=== PATIENT | female | born 1965 | race Caucasian/White ===

== ENCOUNTER → 2017-09-12 | Outpatient (CLI) | payer OTHER ==
[~2017-09-12] MED LIST: ASPI-COR81 M1 PO; BENTYL20 MG PO; LISINOPRIL10 MG PO; MORPHINE; PEPCID20 MG PO; PERCOCET 325 MG1 TAB PO
== END | disposition home or self-care (01) ==
LOC: RAD 12:28
DX: M25.511 Pain in right shoulder (principal); M54.2 Cervicalgia; M54.5 Low back pain; M79.7 Fibromyalgia; R20.0 Anesthesia of skin; M54.6 Pain in thoracic spine

== ENCOUNTER → 2017-10-20 | Outpatient (CLI) | payer OTHER | END | disposition home or self-care (01) | LOC: MRI 13:00 | DX: M75.101 Unspecified rotator cuff tear or rupture of right shoulder, not specified as traumatic (principal); M19.011 Primary osteoarthritis, right shoulder; M54.2 Cervicalgia ==

== ENCOUNTER 2018-02-27 17:48 | Emergency (ER) | payer OTHER ==
[~2018-02-27] VITALS: Wt 61.2 kg
[2018-02-27 18:41] LABS: BASO # 0.1 10*3/uL (0.0-0.1); BASO % 1.1 % (0.0-1.0); EOS # 0.2 10*3/uL (0.0-0.4); EOS % 3.3 % (1.0-4.0); HEMATOCRIT 38.5 % (37.0-47.0); LYMPH # 2.6 10*3/uL (1.3-4.4); MEAN CELL VOLUME 84.2 fl (81.0-99.0); MEAN CORPUSCULAR HGB 28.4 pg (27.0-31.0); MEAN CORPUSCULAR HGB CONC 33.8 g/dl (33.0-37.0); MEAN PLATELET VOLUME 9.7 fl (9.6-12.3); MONO # 0.7 10*3/uL (0.1-1.0); MONO % 10.2 % (3.0-9.0); NEUT # 2.9 10*3/uL (2.3-7.9); NEUT % 44.4 % (47.0-73.0); PLATELET COUNT AUTOMATED 236 10*3/uL (130-400); RED BLOOD COUNT 4.57 10*6/uL (4.10-5.10); RED CELL DISTRI WIDTH 13.1 % (0-14.5); WHITE BLOOD COUNT 6.4 10*3/uL (4.8-10.8)
[2018-02-27 18:58] LABS: ALBUMIN 3.9 gm/dl (3.1-4.5); ALKALINE PHOSPHATASE 61 U/L (45-117); BUN 26 mg/dl (7-24); CHLORIDE 101 mmol/L (98-107); CREATININE 1.73 mg/dL (0.55-1.02); POTASSIUM 3.1 mmol/L (3.5-5.1); SGOT/AST 20 IU/L (3-35); SGPT/ALT 22 U/L (12-78); SODIUM 135 mmol/L (136-145); TOTAL PROTEIN 7.4 gm/dL (6.4-8.2)
[2018-02-27 19:03] LABS: TROPONIN I < 0.015 ng/ml (<0.045)
[2018-02-27 19:04] LABS: BILIRUBIN NEGATIVE (NEGATIVE); BLOOD TRACE-LYSED (NEGATIVE); CLARITY SL CLOUDY (CLEAR); COLOR YELLOW (YELLOW); GLUCOSE NEGATIVE (NEGATIVE); KETONE NEGATIVE (NEGATIVE); LEUKO ESTERASE NEGATIVE (NEGATIVE); NITRITE NEGATIVE (NEGATIVE); SPECIFIC GRAVITY 1.025 (1.005-1.030); UROBILINOGEN 0.2 E.U./dl (0.2-1.0)
[2018-02-27 19:12] LABS: BACTERIA 2+; MUCOUS TRACE; WBC 0-2 wbc/hpf (0-5)
[2018-02-27] MEDS ORDERED: K-TAB20 MEQ PO (20:27)
== END 2018-02-27 20:30 | disposition home or self-care (01) ==
LOC: ED 17:48
PROVIDERS: Emergency Medicine
DX: R00.2 Palpitations (principal); I10 Essential (primary) hypertension; E87.6 Hypokalemia; R79.89 Other specified abnormal findings of blood chemistry; F17.200 Nicotine dependence, unspecified, uncomplicated; Z79.82 Long term (current) use of aspirin; Z79.899 Other long term (current) drug therapy; Z88.0 Allergy status to penicillin; Z88.1 Allergy status to other antibiotic agents

== ENCOUNTER → 2018-03-04 | Outpatient (CLI) | payer OTHER ==
[~2018-03-04] MED LIST changes: +K-TAB20 MEQ PO
--- NOTE | ~2018-03-04 | HM ---
[place], [place] HOLTER MONITOR REPORT NAME: [facility]U [facility] [id number] UNIT #: [id number] ROOM: DOCTOR: ANDI GORDON MD BIRTHDATE: [birth year] DOS: INDICATIONS: Palpitations. FINDINGS: The patient was recorded for 24 hours utilizing a Holter device. The basic rhythm was normal sinus with an average heart rate of 75, heart rate varied from 48-138 beats per minute in sinus. No ventricular arrhythmias were recorded. A total of 24 premature atrial contractions were noted including two atrial couplets. No prolonged pauses were seen. There was no SVT. The patient reported that she was out of breath with her heart pounding on several occasions. On one of these occasions, she had a premature atrial contraction. The rest of them she was in sinus rhythm with rates between 70 and 90. IMPRESSION: Normal 24-hour Holter monitor. ANDI GORDON MD CM:HOLTER:HOLTER MONITOR REPORT [id number] ANDI GORDON MD
== END | disposition home or self-care (01) ==
LOC: CARD 09:30
DX: E87.6 Hypokalemia (principal); R00.2 Palpitations

== ENCOUNTER → 2018-04-10 | Outpatient (CLI) | payer OTHER ==
[~2018-04-10] MED LIST changes: +ADDERALL 30 MG30 MG PO; +ATENOLOL25 MG PO; -LISINOPRIL10 MG PO; +LISINOPRIL20 MG PO; +SIMVASTATIN10 MG PO
--- NOTE | ~2018-04-10 | ST ---
[place], [place] EXERCISE STRESS TEST REPORT NAME: GIGI LAU [facility] #: [id number] UNIT #: [id number] ROOM: DOCTOR: ANDI GORDON MD BIRTHDATE: [birth year] DOS: 04/10/2018 EXERCISE MYOCARDIAL PERFUSION STRESS TEST INDICATIONS: Dyspnea, palpitations, severe fatigue. PROCEDURE: The patient exercised by a full Fransico protocol for 8 minutes and stopped for leg fatigue. She achieved a maximum heart rate of 145, which represented 87% of her maximum predicted heart rate at a workload of 10 mets. She did not develop chest pain and did not have significant diagnostic ST or T-wave changes with exercise. One minute prior to completion of exercise protocol, she was given radionuclide intravenously. IMPRESSION: 1. Good exercise capacity without chest pain or diagnostic electrocardiographic changes. 2. Olmos treadmill score 8 consistent with a low risk for future cardiac events. 3. Radionuclide injected. Please see the separate imaging report for further details of the patient's stress test results. ANDI GORDON MD CM:STRESS:EXERCISE STRESS TEST REPORT [id number] ANDI GORDON MD
== END | disposition home or self-care (01) ==
LOC: CARD 02:57
DX: R06.02 Shortness of breath (principal); R01.1 Cardiac murmur, unspecified

== ENCOUNTER → 2018-04-26 | Outpatient (CLI) | payer OTHER | END | disposition home or self-care (01) | LOC: LAB 16:52 | DX: Z12.11 Encounter for screening for malignant neoplasm of colon (principal); Z00.8 Encounter for other general examination; F11.20 Opioid dependence, uncomplicated; E55.9 Vitamin D deficiency, unspecified; E78.9 Disorder of lipoprotein metabolism, unspecified; R74.8 Abnormal levels of other serum enzymes; I10 Essential (primary) hypertension ==

== ENCOUNTER → 2018-04-28 | Outpatient (CLI) | payer OTHER ==
[2018-04-28 13:29] LABS: URINE AMPHETAMINES > 1000 (1000ng/ml); URINE BARBITURATES < 200 (200ng/ml); URINE BENZODIAZEPINES > 200 (200ng/ml); URINE CANNABINOIDS (THC) < 50 (50ng/ml); URINE COCAINE < 300 (300ng/ml); URINE METHADONE < 300 (300ng/ml); URINE OPIATES > 300 (300ng/ml); URINE PHENCYCLIDINE < 25 (25ng/ml)
[2018-04-28 13:51] LABS: ALBUMIN 4.4 gm/dl (3.1-4.5); ALKALINE PHOSPHATASE 57 U/L (45-117); BUN 16 mg/dl (7-24); CHLORIDE 105 mmol/L (98-107); CHOLESTEROL 168 mg/dL (<200); HDL CHOLESTEROL 44 mg/dl (40-60); LDL CHOLESTEROL 87 mg/dL (9-159); POTASSIUM 3.5 mmol/L (3.5-5.1); SGOT/AST 18 IU/L (3-35); SGPT/ALT 25 U/L (12-78); SODIUM 140 mmol/L (136-145); TOTAL PROTEIN 8.4 gm/dL (6.4-8.2); TRIGLYCERIDES 185 mg/dl (<150); VLDL CHOLESTEROL 37 mg/dL (6-40)
== END | disposition home or self-care (01) ==
LOC: LAB 12:59
PROVIDERS: Family Medicine
DX: Z00.8 Encounter for other general examination (principal); E55.9 Vitamin D deficiency, unspecified; I10 Essential (primary) hypertension; E78.9 Disorder of lipoprotein metabolism, unspecified; R74.8 Abnormal levels of other serum enzymes; F11.20 Opioid dependence, uncomplicated

== ENCOUNTER → 2018-07-30 | Outpatient (CLI) | payer OTHER ==
[2018-07-30 13:15] LABS: URINE AMPHETAMINES < 1000 (1000ng/ml); URINE BARBITURATES < 200 (200ng/ml); URINE CANNABINOIDS (THC) < 50 (50ng/ml); URINE COCAINE < 300 (300ng/ml); URINE METHADONE < 300 (300ng/ml); URINE OPIATES > 300 (300ng/ml)
[2018-07-30 13:22] LABS: URINE BENZODIAZEPINES < 200 (200ng/ml)
[2018-07-30 13:23] LABS: URINE PHENCYCLIDINE < 25 (25ng/ml)
== END | disposition home or self-care (01) ==
LOC: LAB 11:43
PROVIDERS: Family Medicine
DX: Z51.81 Encounter for therapeutic drug level monitoring (principal)

== ENCOUNTER 2019-07-02 10:54 | Emergency (ER) | payer SELFPAY ==
[~2019-07-02] VITALS: Wt 56.2 kg
== END 2019-07-02 11:30 | disposition home or self-care (01) ==
LOC: ED 10:54
DX: S92.511A Displaced fracture of proximal phalanx of right lesser toe(s), initial encounter for closed fracture (principal); F17.200 Nicotine dependence, unspecified, uncomplicated; Z88.0 Allergy status to penicillin; Z88.1 Allergy status to other antibiotic agents; Z79.899 Other long term (current) drug therapy; Z79.82 Long term (current) use of aspirin; Z90.710 Acquired absence of both cervix and uterus; Z90.49 Acquired absence of other specified parts of digestive tract; W01.0XXA Fall on same level from slipping, tripping and stumbling without subsequent striking against object, initial encounter; Y93.89 Activity, other specified; Y92.89 Other specified places as the place of occurrence of the external cause; Y99.8 Other external cause status

== ENCOUNTER → 2020-07-24 | Outpatient (CLI) | payer SELFPAY ==
[2020-07-24 13:23] LABS: URINE AMPHETAMINES > 1000 (1000ng/ml); URINE BARBITURATES < 200 (200ng/ml); URINE BENZODIAZEPINES < 200 (200ng/ml); URINE CANNABINOIDS (THC) > 50 (50ng/ml); URINE COCAINE < 300 (300ng/ml); URINE METHADONE < 300 (300ng/ml); URINE OPIATES < 300 (300ng/ml)
[2020-07-24 13:28] LABS: URINE PHENCYCLIDINE < 25 (25ng/ml)
== END | disposition home or self-care (01) ==
LOC: LAB 12:54
DX: Z51.81 Encounter for therapeutic drug level monitoring (principal); Z79.899 Other long term (current) drug therapy

== ENCOUNTER 2021-05-28 11:47 | Emergency (ER) | payer SELFPAY ==
[~2021-05-28] VITALS: Ht 170.1 cm; Wt 55.3 kg
[2021-05-28 13:04] LABS: BASO % 0.6 % (0.0-1.0); EOS # 0.2 10*3/uL (0.0-0.4); EOS % 2.4 % (1.0-4.0); HEMATOCRIT 40.4 % (37.0-47.0); LYMPH # 1.6 10*3/uL (1.3-4.4); LYMPH % 23.8 % (27.0-41.0); MEAN CELL VOLUME 88.6 fl (81.0-99.0); MEAN CORPUSCULAR HGB 28.9 pg (27.0-31.0); MEAN CORPUSCULAR HGB CONC 32.7 g/dl (33.0-37.0); MEAN PLATELET VOLUME 9.1 fl (9.6-12.3); MONO # 0.9 10*3/uL (0.1-1.0); NEUT % 59.7 % (47.0-73.0); PLATELET COUNT AUTOMATED 249 10*3/uL (130-400); RED BLOOD COUNT 4.56 10*6/uL (4.10-5.10); RED CELL DISTRI WIDTH 13.5 % (0-14.5); WHITE BLOOD COUNT 6.6 10*3/uL (4.8-10.8)
[2021-05-28 13:17] LABS: BUN 19 mg/dl (7-24); CHLORIDE 108 mmol/L (98-107); CREATININE 0.89 mg/dL (0.55-1.02); POTASSIUM 4.7 mmol/L (3.5-5.1); SODIUM 138 mmol/L (136-145); TROPONIN I < 0.015 ng/ml (<0.045)
== END 2021-05-28 13:29 | disposition home or self-care (01) ==
LOC: ED 11:47
PROVIDERS: Emergency Medicine
DX: R51.9 Headache, unspecified (principal); M54.6 Pain in thoracic spine; R68.84 Jaw pain; M25.511 Pain in right shoulder; M25.512 Pain in left shoulder; F17.200 Nicotine dependence, unspecified, uncomplicated; Z88.0 Allergy status to penicillin; Z88.1 Allergy status to other antibiotic agents; Z79.899 Other long term (current) drug therapy; Z79.82 Long term (current) use of aspirin; Z90.711 Acquired absence of uterus with remaining cervical stump; Z90.49 Acquired absence of other specified parts of digestive tract

== ENCOUNTER 2023-03-09 07:11 | Emergency (ER) | payer SELFPAY ==
[~2023-03-09] VITALS: Ht 170.1 cm; Wt 56.7 kg
[2023-03-09 08:01] LABS: BASO # 0.1 10*3/uL (0.0-0.1); BASO % 0.9 % (0.0-1.0); EOS # 0.2 10*3/uL (0.0-0.4); EOS % 4.3 % (1.0-4.0); LYMPH # 1.6 10*3/uL (1.3-4.4); LYMPH % 28.4 % (27.0-41.0); MEAN CELL VOLUME 86.2 fl (81.0-99.0); MEAN CORPUSCULAR HGB 28.7 pg (27.0-31.0); MEAN CORPUSCULAR HGB CONC 33.3 g/dl (33.0-37.0); MEAN PLATELET VOLUME 9.3 fl (9.6-12.3); MONO # 0.5 10*3/uL (0.1-1.0); MONO % 8.9 % (3.0-9.0); NEUT # 3.2 10*3/uL (2.3-7.9); NEUT % 57.3 % (47.0-73.0); PLATELET COUNT AUTOMATED 267 10*3/uL (130-400); RED BLOOD COUNT 4.99 10*6/uL (4.10-5.10); RED CELL DISTRI WIDTH 13.3 % (0-14.5); WHITE BLOOD COUNT 5.6 10*3/uL (4.8-10.8)
[2023-03-09 08:18] LABS: ACT PARTIAL THROMBO TIME 26.5 SECONDS (20.0-32.1)
[2023-03-09 08:28] LABS: ALKALINE PHOSPHATASE 74 U/L (46-116); BUN 15 mg/dl (9-23); CHLORIDE 103 mmol/L (98-107); POTASSIUM 3.9 mmol/L (3.4-5.1); SGPT/ALT 19 U/L (10-49); TOTAL PROTEIN 7.8 gm/dL (6.0-8.0)
[2023-03-09] MEDS ORDERED: NORVASC5 MG PO (08:53)
== END 2023-03-09 09:01 | disposition home or self-care (01) ==
LOC: ED 07:11
PROVIDERS: Emergency Medicine
DX: I16.1 Hypertensive emergency (principal); Z88.0 Allergy status to penicillin; Z88.1 Allergy status to other antibiotic agents; Z90.710 Acquired absence of both cervix and uterus

== ENCOUNTER 2025-05-22 07:12 | Emergency (ER) | payer SELFPAY ==
[~2025-05-22] VITALS: Ht 170.1 cm; Wt 54.0 kg
[~2025-05-22 07:12] MED LIST changes: +NORVASC5 MG PO
[2025-05-22] MEDS ORDERED: ADDERALL 20 MG20 MG PO (07:22)
[2025-05-22] MEDS ORDERED: PROZAC20 MG PO (07:22)
[2025-05-22] MEDS ORDERED: Ondansetron Hydrochloride 4 MG/2 ML VIAL IV ONE (07:30)
[2025-05-22] MEDS ORDERED: MAGNESIUM SULFATE 50 ML IV ONE (07:30)
[2025-05-22 07:43] LABS: BASO # 0.1 10*3/uL (0.0-0.1); BASO % 0.8 % (0.0-1.0); EOS # 0.1 10*3/uL (0.0-0.4); EOS % 1.0 % (1.0-4.0); MEAN CELL VOLUME 86.5 fl (81.0-99.0); MEAN CORPUSCULAR HGB 28.6 pg (27.0-31.0); MEAN PLATELET VOLUME 9.9 fl (9.6-12.3); MONO # 1.0 10*3/uL (0.1-1.0); MONO % 10.0 % (3.0-9.0); NEUT # 7.3 10*3/uL (2.3-7.9); NEUT % 70.7 % (47.0-73.0); NUCLEATED RED BLOOD CELL 0.0 % (0.0-0.0); NUCLEATED RED BLOOD CELL 0.0 10*3/uL (0.0-0.0); PLATELET COUNT AUTOMATED 298 10*3/uL (130-400); RED CELL DISTRI WIDTH 12.7 % (0-14.5)
[2025-05-22 08:16] LABS: BUN 16.0 mg/dl (9-23)
[2025-05-22] MEDS ORDERED: SODIUM CHLORIDE 0.9% 1,000 ML IV ONE ×2 (08:40→09:23)
[2025-05-22] MEDS ORDERED: LEVOFLOXACIN 150 ML IV ONE ×2 (08:40→09:24)
[2025-05-22] MEDS ORDERED: MELOXICAM15 MG PO (08:52)
[2025-05-22] MEDS ORDERED: PREDNISONE20 M1 PO (08:52)
[2025-05-22] MEDS ORDERED: VENT7GM INH (08:52)
[2025-05-22] MEDS ORDERED: LEVOFLOXACIN750 M2 PO (08:52)
== END 2025-05-22 12:06 | disposition home or self-care (01) ==
LOC: ED 07:12
PROVIDERS: Emergency Medicine
DX: J18.9 Pneumonia, unspecified organism (principal); Z90.710 Acquired absence of both cervix and uterus; Z88.0 Allergy status to penicillin; Z88.8 Allergy status to other drugs, medicaments and biological substances

== ENCOUNTER 2025-06-26 07:15 | Inpatient (IN) | payer SELFPAY ==
[~2025-06-26] VITALS: Ht 157.4 cm; Wt 51.7 kg
[~2025-06-26 07:15] MED LIST changes: +ADDERALL 20 MG20 MG PO; +LEVOFLOXACIN750 M2 PO; +MELOXICAM15 MG PO; +PREDNISONE20 M1 PO; +PROZAC20 MG PO; +VENT7GM INH
[2025-06-26 07:31] VITALS: BP 155/93
[2025-06-26] MEDS ORDERED: Albuterol Sulf/Ipratropium 3 ML VIAL NEB ONE (07:35)
[2025-06-26] MEDS ORDERED: Ondansetron Hydrochloride 4 MG/2 ML VIAL IV ONE (07:35)
[2025-06-26] MEDS ORDERED: SODIUM CHLORIDE 0.9% 500 ML IV ONE (07:35)
[2025-06-26 07:51] LABS: BASO # 0.1 10*3/uL (0.0-0.1); BASO % 0.9 % (0.0-1.0); EOS # 0.1 10*3/uL (0.0-0.4); EOS % 0.7 % (1.0-4.0); MEAN CELL VOLUME 88.5 fl (81.0-99.0); MEAN CORPUSCULAR HGB 28.2 pg (27.0-31.0); MEAN PLATELET VOLUME 10.4 fl (9.6-12.3); MONO # 1.0 10*3/uL (0.1-1.0); MONO % 8.6 % (3.0-9.0); NEUT # 8.9 10*3/uL (2.3-7.9); NEUT % 77.1 % (47.0-73.0); NUCLEATED RED BLOOD CELL 0.0 % (0.0-0.0); NUCLEATED RED BLOOD CELL 0.0 10*3/uL (0.0-0.0); PLATELET COUNT AUTOMATED 290 10*3/uL (130-400); RED CELL DISTRI WIDTH 14.3 % (0-14.5)
[2025-06-26 08:12] LABS: BUN 17.0 mg/dl (9-23)
[2025-06-26] MEDS ORDERED: Ondansetron Hydrochloride 4 MG/2 ML VIAL IV PRN (09:15)
[2025-06-26] MEDS ORDERED: BISACODYL 10 MG SUPP R PRN (09:15)
[2025-06-26] MEDS ORDERED: ACETAMINOPHEN 325 MG TAB PO PRN (09:15)
[2025-06-26] MEDS ORDERED: ACETAMINOPHEN 650 MG SUPP R PRN (09:15)
[2025-06-26] MEDS ORDERED: TEMAZEPAM 15 MG CAP PO PRN (09:15)
[2025-06-26] MEDS ORDERED: BISACODYL 5 MG TAB PO PRN (09:15)
[2025-06-26] MEDS ORDERED: Albuterol Sulf/Ipratropium 3 ML VIAL NEB SCH (09:20)
[2025-06-26] MEDS ORDERED: IOHEXOL 300 MG/ML 100 ML VIAL IV ONE (11:50)
[2025-06-26] MEDS ORDERED: IOHEXOL 300 MG/ML 100 ML VIAL ONE (12:02)
[2025-06-26 14:09] VITALS: BP 149/88
[2025-06-26 15:30] VITALS: BP 154/92
[2025-06-26 16:00] VITALS: BP 149/83
[2025-06-26] MEDS ORDERED: Acetaminophen/Hydrocodone 5 MG/325 MG TABLET PO PRN (16:10)
[2025-06-26 20:00] VITALS: BP 136/90; BP 137/97
[2025-06-27] VITALS: BP 125/81
[2025-06-27 06:46] LABS: BASO # 0.0 10*3/uL (0.0-0.1); BASO % 0.2 % (0.0-1.0); EOS # 0.0 10*3/uL (0.0-0.4); EOS % 0.1 % (1.0-4.0); MEAN CELL VOLUME 88.9 fl (81.0-99.0); MEAN CORPUSCULAR HGB 28.1 pg (27.0-31.0); MEAN PLATELET VOLUME 11.1 fl (9.6-12.3); MONO # 1.4 10*3/uL (0.1-1.0); MONO % 9.4 % (3.0-9.0); NEUT # 11.9 10*3/uL (2.3-7.9); NEUT % 81.0 % (47.0-73.0); NUCLEATED RED BLOOD CELL 0.0 % (0.0-0.0); NUCLEATED RED BLOOD CELL 0.0 10*3/uL (0.0-0.0); PLATELET COUNT AUTOMATED 280 10*3/uL (130-400); RED CELL DISTRI WIDTH 14.5 % (0-14.5)
[2025-06-27 08:00] VITALS: BP 161/90
[2025-06-27 08:25] LABS: BUN 15 mg/dl (9-23); FREE T4 1.25 ng/dl (0.89-1.76); LDL CHOLESTEROL 75 mg/dL (9-159); SGPT/ALT 135 U/L (5-49)
[2025-06-27 08:47] LABS: VITAMIN D, 25-HYDROXY 13.2 ng/mL (30-100)
[2025-06-27 12:00] VITALS: BP 174/91
[2025-06-27 16:00] VITALS: BP 168/98
[2025-06-27 20:00] VITALS: BP 165/99
[2025-06-28] VITALS (9 sets, daily range): BP systolic 110–164; BP diastolic 47–91
[2025-06-28 06:15] LABS: BASO # 0.0 10*3/uL (0.0-0.1); BASO % 0.2 % (0.0-1.0); EOS # 0.0 10*3/uL (0.0-0.4); EOS % 0.1 % (1.0-4.0); MEAN CELL VOLUME 89.3 fl (81.0-99.0); MEAN CORPUSCULAR HGB 28.6 pg (27.0-31.0); MEAN PLATELET VOLUME 11.0 fl (9.6-12.3); MONO # 1.0 10*3/uL (0.1-1.0); MONO % 6.9 % (3.0-9.0); NEUT # 12.6 10*3/uL (2.3-7.9); NEUT % 84.1 % (47.0-73.0); NUCLEATED RED BLOOD CELL 0.0 % (0.0-0.0); NUCLEATED RED BLOOD CELL 0.0 10*3/uL (0.0-0.0); PLATELET COUNT AUTOMATED 309 10*3/uL (130-400); RED CELL DISTRI WIDTH 14.6 % (0-14.5)
[2025-06-28 06:24] LABS: BUN 15 mg/dl (9-23); SGPT/ALT 143 U/L (5-49)
[2025-06-28] MEDS ORDERED: Lidocaine Hydrochloride 4% 5 ML AMP NEB ONE (09:00)
[2025-06-28] MEDS ORDERED: Albuterol Sulfate 1.25 MG/3 ML VIAL NEB ONE (09:00)
[2025-06-28] MEDS ORDERED: Lidocaine Hydrochloride 4% 5 ML AMP ONE (09:42)
[2025-06-28] MEDS ORDERED: Albuterol Sulfate 2.5 MG/0.5 ML VIAL NEB ONE (09:42)
[2025-06-28] MEDS ORDERED: Lactated Ringer's Solution 1,000 ML IV ONE (09:47)
[2025-06-28] MEDS ORDERED: EPINEPHrine Hydrochloride 1 MG/10 ML SYR IV ONE (09:57)
[2025-06-28] MEDS ORDERED: FOLIC ACID 1 MG TAB PO SCH (10:00)
[2025-06-28] MEDS ORDERED: Cholecalciferol 2,000 UNIT TABLET (50 MCG) PO SCH (10:00)
[2025-06-28] MEDS ORDERED: Albuterol Sulf/Ipratropium 3 ML VIAL NEB ONE ×2 (10:10→10:49)
[2025-06-28] MEDS ORDERED: Ketamine Hydrochloride 50 MG/5 ML SYRINGE IV ONE (13:39)
[2025-06-28] MEDS ORDERED: Lidocaine Hydrochloride 2% 5 ML SDV IV ONE (13:39)
[2025-06-28] MEDS ORDERED: PROPOFOL 200 MG/20 ML VIAL IV ONE (13:39)
[2025-06-28] MEDS ORDERED: NATURE'S BLEND F1 MG PO (14:39)
[2025-06-28] MEDS ORDERED: LOPRESSOR25 MG PO (14:39)
[2025-06-28] MEDS ORDERED: VENT7GM INH (14:39)
[2025-06-28] MEDS ORDERED: VITAMIN D350 MCG PO (14:39)
[2025-06-28] MEDS ORDERED: DOXYCYCLINE HY100 M3 PO (14:40)
[2025-06-28] MEDS ORDERED: NICODERM CQ1 EAC1 T (14:40)
[2025-06-28] MEDS ORDERED: PREDNISONE10 MG PO (14:40)
[2025-06-28] MEDS ORDERED: PERCOCET 5-3251 EACH PO (14:45)
[2025-06-29 14:07] LABS: ACID FAST SPEC PROCESSING Concentration (.)
== END 2025-06-28 17:20 | disposition home or self-care (01) | DRG 871 ==
LOC: ED 07:15 → EDHOLD 08:45 → 4E 08:45 → EDHOLD 09:20 → 4E 13:59
PROVIDERS: Emergency Medicine; Internal Medicine; Internal Medicine Critical Care Medicine; ADMIT Internal Medicine; ATTEND Internal Medicine
PROC: 0BB78ZX Excision of Left Main Bronchus, Via Natural or Artificial Opening Endoscopic, Diagnostic (ICD-10-PCS; principal; 2025-06-28)
PROC: 0BC18ZZ Extirpation of Matter from Trachea, Via Natural or Artificial Opening Endoscopic (ICD-10-PCS; 2025-06-28)
PROC: 0BC98ZZ Extirpation of Matter from Lingula Bronchus, Via Natural or Artificial Opening Endoscopic (ICD-10-PCS; 2025-06-28)
PROC: 0BC48ZZ Extirpation of Matter from Right Upper Lobe Bronchus, Via Natural or Artificial Opening Endoscopic (ICD-10-PCS; 2025-06-28)
PROC: 0BC88ZZ Extirpation of Matter from Left Upper Lobe Bronchus, Via Natural or Artificial Opening Endoscopic (ICD-10-PCS; 2025-06-28)
PROC: 0BC58ZZ Extirpation of Matter from Right Middle Lobe Bronchus, Via Natural or Artificial Opening Endoscopic (ICD-10-PCS; 2025-06-28)
PROC: 0BC38ZZ Extirpation of Matter from Right Main Bronchus, Via Natural or Artificial Opening Endoscopic (ICD-10-PCS; 2025-06-28)
PROC: 0BC78ZZ Extirpation of Matter from Left Main Bronchus, Via Natural or Artificial Opening Endoscopic (ICD-10-PCS; 2025-06-28)
PROC: 0BC68ZZ Extirpation of Matter from Right Lower Lobe Bronchus, Via Natural or Artificial Opening Endoscopic (ICD-10-PCS; 2025-06-28)
PROC: 0BCB8ZZ Extirpation of Matter from Left Lower Lobe Bronchus, Via Natural or Artificial Opening Endoscopic (ICD-10-PCS; 2025-06-28)
DX: A41.9 Sepsis, unspecified organism (principal); J18.9 Pneumonia, unspecified organism; N17.0 Acute kidney failure with tubular necrosis; J44.1 Chronic obstructive pulmonary disease with (acute) exacerbation; J44.0 Chronic obstructive pulmonary disease with (acute) lower respiratory infection; E87.20 Acidosis, unspecified; F90.9 Attention-deficit hyperactivity disorder, unspecified type; J20.9 Acute bronchitis, unspecified; R91.8 Other nonspecific abnormal finding of lung field; R73.9 Hyperglycemia, unspecified; F17.210 Nicotine dependence, cigarettes, uncomplicated; F12.10 Cannabis abuse, uncomplicated; Z20.822 Contact with and (suspected) exposure to COVID-19; I10 Essential (primary) hypertension; Z88.0 Allergy status to penicillin; Z88.8 Allergy status to other drugs, medicaments and biological substances; Z79.899 Other long term (current) drug therapy; Z79.01 Long term (current) use of anticoagulants; Z79.2 Long term (current) use of antibiotics; Z82.49 Family history of ischemic heart disease and other diseases of the circulatory system; Z98.891 History of uterine scar from previous surgery; Z90.49 Acquired absence of other specified parts of digestive tract; Z78.9 Other specified health status; Z71.6 Tobacco abuse counseling; Z90.710 Acquired absence of both cervix and uterus